=== PATIENT | male | born 1995 | race Caucasian/White ===

== ENCOUNTER 2018-10-11 16:06 | Emergency (ER) | payer OTHER ==
[~2018-10-11] VITALS: Ht 172.7 cm; Wt 57.2 kg
--- NOTE | 2018-10-11 17:07 | PHYS DOC ---
Adult General Chief Complaint Chief Complaint: ABDOMINAL PAIN [facility] HPI Patient is a 22-year-old who presents with complaint of several month history of abdominal pain with nausea as well as diarrhea. Patient states that he has had approximately 30 pound weight loss over the course of the last several months and states that symptoms have gotten quite a bit worse over the last few days stating that he has not been able to eat anything for the last 3 days because of how bad it makes his stomach feel. Currently patient denies any abdominal pain, stating that he just feels some fullness in his epigastric region. He states that when he first wakes up in the morning he feels great like there is nothing wrong but when he gets up if he tries to eat or drink anything his stomach starts to hurt and he gets very nauseated. He states that food and fluids go straight through him. He denies any fever, chest pain or shortness of breath. Review of Systems Review of Systems Constitutional: Denies fever or chills [] Respiratory: Denies cough or shortness of breath [] Cardiovascular: No additional information not addressed in HPI [] GI: Complains of abdominal pain with nausea and diarrhea [] : Denies dysuria or hematuria [] Musculoskeletal: Denies back pain or joint pain [] All other systems were reviewed and found to be within normal limits, except as documented in this note. Allergies Allergies Allergies Coded Allergies Type Severity Reaction Last Updated Verified No Known Drug Allergies 10/11/18 No Physical Exam Physical Exam Constitutional: Well developed, well nourished, no acute distress, non-toxic appearance. [] HENT: Normocephalic, atraumatic, bilateral external ears normal, oropharynx moist, no oral exudates, nose normal. [] Eyes: PERRLA, EOMI, conjunctiva normal, no discharge. [] Neck: Normal range of motion, no tenderness, supple, no stridor. [] Cardiovascular: Regular rate and rhythm, no murmur [] Lungs & Thorax: Bilateral breath sounds clear to auscultation [] Abdomen: Bowel sounds normal, soft, with mild epigastric tenderness. [] Skin: Warm, dry, no erythema, no rash. [] Extremities: No tenderness, no cyanosis, no clubbing, ROM intact, no edema. [] Neurologic: Alert and oriented X 3, no focal deficits noted. [] EKG EKG [] Radiology/Procedures Radiology/Procedures [] Impressions: CT scan abdomen and pelvis with contrast 10/11/2018 CLINICAL HISTORY: Diffuse abdominal pain for one month. TECHNIQUE: After the intravenous administration of 75 cc of Omnipaque 300, contiguous, 5 mm axial sections were obtained through the abdomen and pelvis. One or more of the following individualized dose reduction techniques were utilized for this study: 1. Automated exposure control. 2. Adjustment of the mA and/or kV according to patient size. 3. Use of iterative reconstruction technique. FINDINGS: The absence of oral contrast material limits the study for the detection of bowel pathology. Images through the lung bases are within normal limits. The liver, spleen, pancreas, adrenal glands and kidneys are within normal limits. The abdominal aorta tapers normally. The gallbladder is slightly contracted. No free fluid or free air is seen within the abdomen. There is no evidence of bowel obstruction. Air and stool is seen throughout the colon. The appendix is partially visualized and is within normal limits. Images through pelvis demonstrate the urinary bladder distended with urine. A small amount of free fluid is seen within the pelvis. Minimal S-shaped curvature of the thoracolumbar spine is seen. IMPRESSION: Small amount of free fluid is seen within the pelvis. No additional acute abnormality is seen. Electronically signed by: Shiva Rodriguez MD (10/11/2018 7:42 PM) [facility] DICTATED AND SIGNED BY: SHIVA RODRIGUEZ MD DATE: 10/11/181934 CC: DEBBIE GILMORE DO; PCP,NO ~ Course & Med Decision Making Course & Med Decision Making Pertinent Labs and Imaging studies reviewed. (See chart for details) Patient seen and evaluated by your medical staff after which an IV was established and blood work drawn. At this time, workup is still pending and patient is being signed out to oncoming ER physician, Dr. Gilmore. The patient's labs are unremarkable. His CT of the abdomen and pelvis is only remarkable for a small amount of free fluid in the pelvis. No other abnormality is apparent. The patient has follow-up with GI next week. I believe this is the next most important step in his workup. I will start him on omeprazole 40 mg daily and give him a prescription for Zofran. He is stable for discharge at this time. Dragon Disclaimer Dragon Disclaimer This electronic medical record was generated, in whole or in part, using a voice recognition dictation system. Departure Departure: Referrals: PCP,NO (PCP) Scripts Ondansetron (ONDANSETRON ODT) 4 Mg Tab.rapdis 1 TAB PO PRN Q6-8HRS PRN for NAUSEA/VOMITING, #16 TAB Prov: DEBBIE GILMORE DO 10/11/18 Omeprazole (OMEPRAZOLE) 40 Mg Capsule.dr 1 CAP PO DAILY for GERD, #30 CAP Prov: DEBBIE GILMORE DO 10/11/18 PREMA MURRAY Jr. DO Oct 11, 2018 17:07 DEBBIE GILMORE DO Oct 11, 2018 19:50
[2018-10-11] MEDS: IV NORMAL SALINE 1,000ML 1,000 ML IV SCH (17:19)
[2018-10-11] MEDS: ONDANSETRON PF 4 MG/2 ML VIAL. IV ONE (17:21)
[2018-10-11] MEDS: PANTOPRAZOLE IV 40 MG VIAL. IVP ONE (17:25)
[2018-10-11 17:26] LABS: BASO % 0 % (0-3); EOS % 0 % (0-3); HEMOGLOBIN 14.7 g/dL (13.0-17.5); LYMPH # 1.6 x10^3/uL (1.0-4.8); LYMPH % 14 % (24-48); MEAN CORPUSCULAR HEMOGLOBIN 28 pg (25-35); MEAN CORPUSCULAR HGB CONC 33 g/dL (31-37); MEAN CORPUSCULAR VOLUME 85 fL (79-100); MONO # 0.6 x10^3/uL (0.0-1.1); MONO % 5 % (0-9); NEUT # 9.3 x10^3uL (1.8-7.7); NEUT % 80 % (31-73); PLATELET COUNT 219 x10^3/uL (140-400); RED BLOOD COUNT 5.21 x10^6/uL (4.30-5.70); RED CELL DISTRIBUTION WIDTH 12.2 % (11.5-14.5); WHITE BLOOD COUNT 11.6 x10^3/uL (4.0-11.0)
[2018-10-11 17:45] LABS: ALBUMIN 4.3 g/dL (3.4-5.0); ALBUMIN/GLOBULIN RATIO 1.2 (1.0-1.7); CALCIUM 9.2 mg/dL (8.5-10.1); CREATININE 1.2 mg/dL (0.7-1.3); GFR 77.2; POTASSIUM 3.5 mmol/L (3.5-5.1); TOTAL BILIRUBIN 0.4 mg/dL (0.2-1.0); TOTAL PROTEIN 7.9 g/dL (6.4-8.2)
[2018-10-11 18:20] LABS: BILIRUBIN,URINE NEG (NEG); CLARITY,URINE CLEAR; COLOR,URINE YELLOW; GLUCOSE,URINE NEG (NEG); NITRITE,URINE NEG (NEG); RBC,URINE 0 /HPF (0-2); UROBILINOGEN,URINE 0.2 mg/dL (0.2 mg/dL); WBC,URINE OCC /HPF (0-4)
[2018-10-11 18:21] LABS: BACTERIA,URINE 0 /HPF (0-FEW); SQUAMOUS EPITHELIAL CELL,UR OCC /LPF
[2018-10-11 18:23] LABS: BARBITURATES NEG (NEG); BENZODIAZEPINES NEG (NEG); CANNABINOIDS NEG (NEG); COCAINE NEG (NEG); METHADONE NEG (NEG); OPIATES NEG (NEG); PHENCYCLIDINE NEG (NEG)
[2018-10-11 18:30] LABS: AMPHETAMINE/METHAMPHETAMINE NEG (NEG)
[2018-10-11 18:59] VITALS: BP 128/74
[2018-10-11] MEDS: IOHEXOL 300 MG/ML 75 ML VIAL. IV ONE (19:05)
--- NOTE | 2018-10-11 19:46 | RAD ---
CT scan abdomen and pelvis with contrast 10/11/2018 CLINICAL HISTORY: Diffuse abdominal pain for one month. TECHNIQUE: After the intravenous administration of 75 cc of Omnipaque 300, contiguous, 5 mm axial sections were obtained through the abdomen and pelvis. One or more of the following individualized dose reduction techniques were utilized for this study: 1. Automated exposure control. 2. Adjustment of the mA and/or kV according to patient size. 3. Use of iterative reconstruction technique. FINDINGS: The absence of oral contrast material limits the study for the detection of bowel pathology. Images through the lung bases are within normal limits. The liver, spleen, pancreas, adrenal glands and kidneys are within normal limits. The abdominal aorta tapers normally. The gallbladder is slightly contracted. No free fluid or free air is seen within the abdomen. There is no evidence of bowel obstruction. Air and stool is seen throughout the colon. The appendix is partially visualized and is within normal limits. Images through pelvis demonstrate the urinary bladder distended with urine. A small amount of free fluid is seen within the pelvis. Minimal S-shaped curvature of the thoracolumbar spine is seen. IMPRESSION: Small amount of free fluid is seen within the pelvis. No additional acute abnormality is seen. Electronically signed by: Shiva Rodriguez MD (10/11/2018 7:42 PM) [facility]
[2018-10-11] MEDS ORDERED: ONDA4TAB12 PO (20:06)
[2018-10-11] MEDS ORDERED: OMEP40CA5 PO (20:06)
== END 2018-10-11 20:14 | disposition home or self-care (01) ==
LOC: ER 16:06
DX: R10.816 Epigastric abdominal tenderness (principal); R10.84 Generalized abdominal pain; R11.0 Nausea; R19.7 Diarrhea, unspecified
CPT/HCPCS: 36415; 74177; 80053; 80307; 81001; 83690; 85025; 96374; 96375; 99284; C9113; J2405; Q9967; J7030